=== PATIENT | male | born 1965 ===

== ENCOUNTER 2017-02-08 16:19 | Emergency (ER) | payer BC ==
--- NOTE | 2017-02-08 18:17 | C.PDOC ---
Chief Complaint (Nursing): Chest Pain Disposition - Disposition Disposition: HOME/ ROUTINE Disposition Time: 18:16 Condition: STABLE - Clinical Impression Clinical Impression: Bronchitis
--- NOTE | 2017-02-08 18:19 | C.PDOC ---
History Of Present Illness 51-year-old male, presents to the emergency department with complaints of cold, productive cough and congestion for the past four days. Patient notes associated chest pain that is worse with coughing. Patient denies shortness of breath, fevers, or any other associated symptoms. No other complaints at this time. Chief Complaint (Nursing): Chest Pain History Per: Patient History/Exam Limitations: no limitations Onset/Duration Of Symptoms: Days Current Symptoms Are (Timing): Still Present Severity: Moderate Past Medical History Reviewed: Historical Data, Nursing Documentation, Vital Signs Vital Signs: Last Vital Signs Temp 97.7 F 02/08/17 17:00 Pulse 117 H 02/08/17 17:00 Resp 20 02/08/17 17:00 BP 139/89 02/08/17 17:00 Pulse Ox 100 02/08/17 17:00 Family History: States: No Known Family Hx Denies: [place] Review Of Systems Constitutional: Negative for: Fever ENT: Positive for: Nose Congestion Cardiovascular: Positive for: Chest Pain. Negative for: Palpitations Respiratory: Positive for: Cough Gastrointestinal: Negative for: Nausea, Vomiting, Abdominal Pain Musculoskeletal: Negative for: Back Pain Skin: Negative for: Rash Neurological: Negative for: Weakness, Numbness, Headache, Dizziness Physical Exam - Physical Exam Appears: Non-toxic, No Acute Distress Skin: Warm, Dry, No Rash Eye(s): bilateral: Normal Inspection Nose: Normal Oral Mucosa: Moist Lips: Normal Appearing Neck: Normal ROM, Supple Chest: Tenderness (mild, left chest wall.) Cardiovascular: Rhythm Regular, No Murmur Respiratory: Normal Breath Sounds, No Accessory Muscle Use Extremity: Normal ROM Medical Decision Making Medical Decision Making: EKG Rate 109bpm Rhythm Sinus Tachycardia Interpret Normal axis. Normal intervals. No acute ischemia. Disposition - Disposition Disposition: HOME/ ROUTINE Disposition Time: 18:15 Condition: STABLE Additional Instructions: Please follow up with your doctor. Return to the ER for any worsening symptoms or for any other concerns. Prescriptions: Albuterol HFA [Ventolin HFA 90 mcg/actuation (8 g)] 1 - 2 puff IH Q6H PRN #1 inhaler PRN Reason: Wheezing Azithromycin 250 mg PO DAILY #6 tab Instructions: Acute Bronchitis (ED) Forms: Gen Discharge Inst Venezuelan Print Language: [place] - Clinical Impression Clinical Impression: Bronchitis - Scribe Statement The provider has reviewed the documentation as recorded by the Scribe Zunaira Julia All medical record entries made by the Jennifer were at my direction and personally dictated by me. I have reviewed the chart and agree that the record accurately reflects my personal performance of the history, physical exam, medical decision making, and the department course for this patient. I have also personally directed, reviewed, and agree with the discharge instructions and disposition.
[2017-02-08 18:21] VITALS: RESP 20; O2SAT 100
[2017-02-08] MEDS ORDERED: Sodium Chloride 0.9% 1,000 ML IV ONE (18:25)
[2017-02-08 18:31] VITALS: BP 146/95; PULSE 109
[2017-02-08 18:33] VITALS: TEMP 97.5
== END 2017-02-08 19:03 | disposition home or self-care (01) ==
LOC: C.ER 16:19
DX: J40 Bronchitis, not specified as acute or chronic (principal)
CPT/HCPCS: 80053; 84484; 85025; 96361; 96374; 99284; J1885; J7040